=== PATIENT | female | born 1960 | race Hispanic/Latino ===

== ENCOUNTER 2017-02-26 13:14 | Emergency (ER) | payer BC ==
[2017-02-26 13:22] VITALS: RESP 18; O2SAT 100
--- NOTE | 2017-02-26 14:14 | ED PDOC ---
HPI: Dental Pain/Injury <Nayely Shah - Last Filed: 02/26/17 17:04> Chief Complaint (Provider): "right jaw pain and i feel horrible" History Per: Patient History/Exam Limitations: no limitations Onset/Duration Of Symptoms: Days Current Symptoms Are (Timing): Still Present Severity: Moderate Pain Scale Rating Of: 7 Quality: Sharp, Aching Additional Complaint(s): 57 y/o female, pmhx of hypothyroidism (not currently being treated) presents complaining of several days of worsening jaw pain. She reports she has had this intermittent pain from a long time but several days ago it worsened suddenly. She does not recall any inciting/triggering event. Pain is 7-8/10, constant, and achy in characterThe pain started at about her mandibular 4-5 pre-molar and slowly started radiating to her right ear. She attempted to take 25 mg of cannabis oil for relief without any success. No alleviating factors. Exacerbated by mastication. The jaw pain is also associated with feeling feverish, nausea, sore throat, weakness, loss of appetite, and "generally feeling terrible" as per pt. No sick contacts. 1st episode. Seen by dentist yesterday whom didnt find anything out of out the ordinary. Seen by PMD today, who also did not find anything. No other complaints. Denies neck pain, Dizziness , lightheadedness, CP/SOB, V/D/C, urinary symptoms, PMD: Karina <Rodney Zamudio - Last Filed: 02/26/17 17:17> Chief Complaint (Nursing): Dental Pain Past Medical History Vital Signs: Last Vital Signs Temp 100.5 F H 02/26/17 15:07 Pulse 88 02/26/17 13:17 Resp 18 02/26/17 13:17 BP 112/65 02/26/17 13:17 Pulse Ox 100 02/26/17 16:09 <MagalikeyonnaNayely - Last Filed: 02/26/17 17:04> Reviewed: Historical Data, Nursing Documentation, Vital Signs Vital Signs: Last Vital Signs Temp 100.5 F H 02/26/17 13:17 Pulse 88 02/26/17 13:17 Resp 18 02/26/17 13:17 BP 112/65 02/26/17 13:17 Pulse Ox 100 02/26/17 13:17 - Medical History PMH: Hypothyroidism - Surgical History Surgical History: Back Surgery - Family History Family History: States: Unknown Family Hx - Immunization History Hx Tetanus Toxoid Vaccination: No (not sure of last tetanus) <Rodney Zamudio - Last Filed: 02/26/17 17:17> - Home Medications Home Medications: Ambulatory Orders Medication Instructions Recorded Clindamycin [Cleocin] 300 mg PO TID #30 cap 02/26/17 Naproxen [Naprosyn] 1 tab PO BID PRN #30 tab 02/26/17 traMADol [Ultram] 50 mg PO TID PRN #15 tab 02/26/17 - Allergies Allergies/Adverse Reactions: Allergies Allergy/AdvReac Type Severity Reaction Status Date / Time No Known Allergies Allergy Verified 02/26/17 13:16 Review of Systems ROS Statement: Except As Marked, All Systems Reviewed And Found Negative <Rodney Zamudio - Last Filed: 02/26/17 17:17> Physical Exam - Reviewed Nursing Documentation Reviewed: Yes Vital Signs Reviewed: Yes - Physical Exam Appears: Positive for: Non-toxic, No Acute Distress, Uncomfortable Head Exam: Positive for: ATRAUMATIC, NORMOCEPHALIC Skin: Positive for: Warm, Dry, Pallor Eye Exam: Positive for: EOMI, PERRL. Negative for: Periorbital swelling, Periorbital tenderness, Conjunctival injection, Scleral icterus ENT: Positive for: Pharynx Is (clear, nonerythematous, ), TM Is/Are (clear), Sinus Pain/Drainage (sinuses nontender), Hearing Is (normal ), Other ( tenderness to palpation at the mandibular angle, mild dysmorphia of lower right facial side 2/2 to edema, 4-5 premolars tender to palpation. No signs of abcess , injury, discharge, erythema). Negative for: Nasal Congestion, Pharyngeal Erythema, Tonsillar Exudate Cardiovascular/Chest: Positive for: Regular Rate, Rhythm, Chest Non Tender. Negative for: JVD Respiratory: Positive for: Normal Breath Sounds. Negative for: Decreased Breath Sounds, Crackles, Rales, Wheezing Pulses-Radial (L): 2+ Pulses-Radial (R): 2+ Neurologic/Psych: Positive for: Alert, legal recruiter II-XII, Oriented. Negative for: Motor/Sensory Deficits, Aphasia, Facial Droop <Rodney Zamudio - Last Filed: 02/26/17 17:17> - Laboratory Results Result Diagrams: 02/26/17 14:45 02/26/17 14:45 <Elena Shahissa - Last Filed: 02/26/17 17:04> - Laboratory Results Result Diagrams: 02/26/17 14:45 02/26/17 14:45 - ECG O2 Sat by Pulse Oximetry: 100 - Progress ED Course And Treament: rule out sinusitis/parotitis cbc cmp amylase esr crp neck ct with iv contrast head ct morphine 2mg ivp for pain <Rodney Zamudio - Last Filed: 02/26/17 17:17> Disposition <Nayely Shah - Last Filed: 02/26/17 17:04> - Patient ED Disposition Is Patient to be Admitted: No - Disposition Disposition: Routine/Home Disposition Time: 17:07 - POA Present On Arrival: None <Rodney Zamudio - Last Filed: 02/26/17 17:17> - Clinical Impression Clinical Impression: Dental sore - Disposition Condition: GOOD Additional Instructions: make sure to get plenty of rest take medications as prescribed follow up with your primary doctor in 2-3 days follow up with your dentist as soon as possible Prescriptions: Clindamycin [Cleocin] 300 mg PO TID #30 cap Naproxen [Naprosyn] 1 tab PO BID PRN #30 tab PRN Reason: Pain traMADol [Ultram] 50 mg PO TID PRN #15 tab PRN Reason: SEVERE PAIN ONLY Instructions: Dental Abscess (ED), Dental Caries (ED), Toothache (ED)
[2017-02-26] MEDS ORDERED: Morphine 4 MG/ML VIAL ONE (14:53)
[2017-02-26 14:56] LABS: BASO % 0.3 % (0.0-2.0); EOS % 0.1 % (0.0-4.0); HEMOGLOBIN 14.1 g/dL (12.0-16.0); LYMPH # 0.5 K/uL (1.0-4.3); LYMPH % 4.7 % (20.0-40.0); MEAN CELL VOLUME 88.2 fl (81.0-99.0); MEAN PLATELET VOLUME 7.1 fl (7.2-11.7); MONO # 0.6 K/uL (0.0-0.8); MONO % 5.8 % (0.0-10.0); NEUT # 9.7 K/uL (1.8-7.0); NEUT % 89.1 % (50.0-75.0); NRBC % 0.1 % (0.0-0.0); PLATELET COUNT 222 K/uL (130-400); RBC 4.69 Mil/uL (3.80-5.20); RED CELL DISTRIBUTION WIDTH 13.4 % (11.5-14.5); WHITE BLOOD COUNT 10.9 K/uL (4.8-10.8)
[2017-02-26 15:06] LABS: ALBUMIN 5.2 g/dL (3.5-5.0); ALT/SGPT 40 U/L (9-52); AMYLASE 77 U/L (30-110); AST/SGOT 23 U/L (14-36); BLOOD UREA NITROGEN 13 mg/dl (7-17); CALCIUM 10.2 mg/dL (8.4-10.2); GFR AFRICAN-AMERICAN > 60; GFR NON-AFRICAN AMERICAN > 60; LIPASE 70 U/L (23-300)
[2017-02-26 15:13] LABS: ALB/GLOB RATIO 1.5 (1.0-2.1)
[2017-02-26 15:33] LABS: BASOPHIL 1 % (0-2); LYMPHOCYTE 4 % (20-50); MONOCYTE 6 % (0-10); NEUTROPHIL 89 % (42-75); PLATELET ESTIMATE NORMAL (NORMAL); TOTAL CELLS COUNTED 100
[2017-02-26] MEDS ORDERED: Iohexol 300 100 ML IJ ONE (15:33)
[2017-02-26] MEDS ORDERED: Sodium Chloride 0.9% 50 ML IV ONE (15:33)
--- NOTE | 2017-02-26 15:57 | CT ---
PROCEDURE: CT HEAD WITHOUT CONTRAST. HISTORY: adams COMPARISON: None available. TECHNIQUE: Axial computed tomography images were obtained through the head/brain without intravenous contrast. Radiation dose: Total exam DLP = 821.91 mGy-cm. This CT exam was performed using one or more of the following dose reduction techniques: Automated exposure control, adjustment of the mA and/or kV according to patient size, and/or use of iterative reconstruction technique. FINDINGS: HEMORRHAGE: No intracranial hemorrhage. BRAIN: No mass effect or edema. No atrophy or chronic microvascular ischemic changes. VENTRICLES: Unremarkable. No hydrocephalus. CALVARIUM: Unremarkable. PARANASAL SINUSES: Unremarkable as visualized. No significant inflammatory changes. MASTOID AIR CELLS: Unremarkable as visualized. No inflammatory changes. OTHER FINDINGS: None. IMPRESSION: Normal CT of the Head. No intracranial mass, hemorrhage or evidence of acute infarct.
--- NOTE | 2017-02-26 16:43 | CT ---
PROCEDURE: CT NECK WITH CONTRAST HISTORY: possible sinusitis or parotitis COMPARISON: None TECHNIQUE: CT of the neck with intravenous contrast. Coronal and sagittal reformats generated. Intravenous contrast dose: 80 mL Omnipaque 300 Radiation dose: DLP 422.69 mGy-cm This CT exam was performed using one or more of the following dose reduction techniques: Automated exposure control, adjustment of the mA and/or kV according to patient size, and/or use of iterative reconstruction technique. FINDINGS: NASOPHARYNX: Unremarkable. SUPRAHYOID NECK: Parapharyngeal spaces are clear. Mild asymmetry of the valleculae, without evidence of mass or abnormal mucosal enhancement. INFRAHYOID NECK: Normal larynx. Nondistention of the left piriform sinus without evidence of mass or abnormal mucosal enhancement. Unlikely significant but may be image directly if clinically warranted. MASS: None. GLANDS: Parotid and submandibular glands unremarkable. Normal size thyroid gland, without nodule. LYMPH NODES: No significantly enlarged cervical lymph nodes. CERVICAL SPINE: No fracture or focal lesion. VASCULAR STRUCTURES: Unremarkable. OTHER FINDINGS: Mild chronic right maxillary sinusitis. No evidence of parotitis. No evidence of acute sinusitis. Minimal chronic right maxillary sinusitis. IMPRESSION: No acute abnormality.
[2017-02-26 17:40] VITALS: BP 110/68; PULSE 80; TEMP 98.8
== END 2017-02-26 17:40 | disposition home or self-care (01) ==
LOC: H.ER 13:14
DX: K08.89 Other specified disorders of teeth and supporting structures (principal); E03.9 Hypothyroidism, unspecified
CPT/HCPCS: 70450; 70491; 80053; 82150; 83690; 85025; 85651; 96374; 99281; J2270; Q9967